=== PATIENT | female | born 1990 | race Caucasian/White ===

== ENCOUNTER 2024-01-23 15:15 | Outpatient (CLI) | payer OTHER ==
[~2024-01-23] VITALS: Ht 162.6 cm; Wt 91.0 kg
[~2024-01-23 15:15] MED LIST: ALBUTEROL SULFATE 2.5MG/0.5ML INH NEB SOLN INH PRN; EPINEPHrine INJ 1 MG/ML 1ML AMP IM PRN; NS 1,000 ML IV SCH; diphenhydrAMINE 50MG/ML VIAL IV PRN; methylPREDNISolone 125MG 2ML VIAL IV PRN
[2024-01-23 15:40] VITALS: BP 146/65; O2SAT 99
[2024-01-23] MEDS: FERRIC CARBOXYMALTOSE INJ 750 MG in NS 250 ML (>50kg) IV ONE (15:59)
[2024-01-23] MEDS ORDERED: METF10004 PO (16:27)
[2024-01-23 17:15] VITALS: BP 129/65; O2SAT 98
== END 2024-01-23 17:15 | disposition home or self-care (01) ==
LOC: M INFU 15:15
PROVIDERS: ATTEND Student in an Organized Health Care Education/Training Program
DX: D50.9 Iron deficiency anemia, unspecified (principal)
CPT/HCPCS: 96365; J1439

== ENCOUNTER 2024-01-30 14:55 | Outpatient (CLI) | payer OTHER ==
[2024-01-30 14:55] VITALS: BP 135/60; O2SAT 98
[~2024-01-30 14:55] MED LIST changes: +METF10004 PO; -NS 1,000 ML IV SCH
[2024-01-30] MEDS ORDERED: NS 1,000 ML IV SCH (15:00)
[2024-01-30] MEDS: FERRIC CARBOXYMALTOSE INJ 750 MG in NS 250 ML (>50kg) IV ONE (15:02)
[2024-01-30 16:16] VITALS: BP 141/65; O2SAT 97
== END 2024-01-30 16:15 ==
LOC: M INFU 14:55 → EDUNIT# 15:00 → M INFU 16:15
PROVIDERS: ATTEND Student in an Organized Health Care Education/Training Program
DX: D50.9 Iron deficiency anemia, unspecified (principal)
CPT/HCPCS: 96365; J1439

== ENCOUNTER → 2024-04-09 | Outpatient (REF) | payer OTHER ==
[~2024-04-09] MED LIST changes: -ALBUTEROL SULFATE 2.5MG/0.5ML INH NEB SOLN INH PRN; -EPINEPHrine INJ 1 MG/ML 1ML AMP IM PRN; -diphenhydrAMINE 50MG/ML VIAL IV PRN; -methylPREDNISolone 125MG 2ML VIAL IV PRN
== END ==
LOC: M LAB REF 19:28
PROVIDERS: ATTEND Physician Assistant Medical
DX: B34.9 Viral infection, unspecified (principal)

== ENCOUNTER → 2024-05-25 | Outpatient (CLI) | payer OTHER | LOC: M PLAIMG 09:04 | PROVIDERS: ATTEND Podiatrist Foot & Ankle Surgery | DX: M25.471 Effusion, right ankle (principal); M72.2 Plantar fascial fibromatosis ==